=== PATIENT | female | born 2005 | race Caucasian/White ===

== ENCOUNTER → 2024-05-22 07:01 | Outpatient (REF) | payer BC, SELFPAY ==
[2024-05-24 08:41] LABS: Quantiferon Mitogen minus NIL 5.85 IU/mL; Quantiferon NIL 0.05 IU/mL; Quantiferon TB Gold Plus Negative (Negative)
== END ==
LOC: REG 07:01
PROVIDERS: ATTENDING PHYSICIAN Nurse Practitioner Adult Health; FAMILY PHYSICIAN Physician Assistant Medical
DX: Z11.1 Encounter for screening for respiratory tuberculosis (principal)
CPT/HCPCS: 36415; 86480